=== PATIENT | male | born 2000 | race Caucasian/White ===

== ENCOUNTER 2020-12-17 16:57 | Emergency (ER) | payer MEDICAID ==
[~2020-12-17] VITALS: Ht 175.3 cm; Wt 117.9 kg
[2020-12-17 17:00] VITALS: BP_SYST 134
--- NOTE | 2020-12-17 17:04 | NUR ---
Placed in room 2 . Placed on conveyor monitor, blood pressure machine and pulse oximeter. To gown for exam. Side rails up.
--- NOTE | 2020-12-17 17:05 | NUR ---
Pt bib ambu;ance with complaint of sudden onset of a sharp pain 7/10 while home. Pt reports sitting on couch playing a video game and listening to music when the pain started. Pt felt anxious and called 911. Pt breathing is even and unlabored. Vital signs are stable with slight tachycardia 105 beats per minute. Pt reports pain with deep breath 7/10. Pt AAOX4 speaking full sentences. Pt resting in [facility] no distress noted. Addendum: 12/17/20 at 1712 by RASHEEDEDND Pt bib ambulance with complaint of sudden onset of a sharp pain 7/10 while home. Pt reports sitting on couch playing a video game and listening to music when the pain started. Pt felt anxious and called 911. Pt breathing is even and unlabored. Vital signs are stable with slight tachycardia 105 beats per minute. Pt reports pain with deep breath 7/10. Pt AAOX4 speaking full sentences. Pt resting in [facility] no distress noted. Pt attached to monitor.
--- NOTE | 2020-12-17 17:43 | NUR ---
Pt mother is Rafaela [phone]
--- NOTE | 2020-12-17 19:03 | NUR ---
WILIAN Godoy at bedside examining patient.
--- NOTE | 2020-12-17 19:07 | NUR ---
Care endorsed to Leonel CORDOVA.
--- NOTE | 2020-12-17 19:52 | NUR ---
12 Lead EKG has been done, Dr. Godoy aware
[2020-12-17] MEDS ORDERED: IBUPROFEN 600 MG TABLET PO ONE (20:00)
--- NOTE | 2020-12-17 20:06 | NUR ---
Dr. Godoy bedside for pt update
--- NOTE | 2020-12-17 20:26 | NUR ---
Patient given written and verbal discharge instructions and verbalizes understanding. ER MD discussed with patient the results and treatment provided. Patient in stable condition. ID arm band removed. Patient educated on pain management and to follow up with PMD. Pain Scale 0/10 Opportunity for questions provided and answered.
[2020-12-17 20:27] VITALS: BP_SYST 136
== END 2020-12-17 20:26 | disposition home or self-care (01) ==
LOC: SED 16:57
DX: M94.0 Chondrocostal junction syndrome [Tietze] (principal); F41.9 Anxiety disorder, unspecified
CPT/HCPCS: 71045; 99283

== ENCOUNTER 2021-01-10 05:09 | Emergency (ER) | payer MEDICAID ==
[~2021-01-10] VITALS: Ht 175.3 cm; Wt 117.9 kg
[2021-01-10 05:10] VITALS: BP_SYST 142
--- NOTE | 2021-01-10 05:13 | NUR ---
Patient to ER bed 06 to gown for evaluation. Side rails up.
--- NOTE | 2021-01-10 05:14 | NUR ---
ER Dr. Khalil at bedside examining patient.
--- NOTE | 2021-01-10 05:25 | NUR ---
portable xray at bedside.
--- NOTE | 2021-01-10 05:35 | NUR ---
PATIENT AAOX4 BIB BLS FROM HOME C/O MILD SUBSTERNAL NON-RADIATING CHEST PAIN. CURRENTLY STATING 4/10 ON THE PAIN SCALE. PER PATIENT HAS HSITORY OF ANXIETY AND SLEEP APENA. VSS. DENIES ANY SOB, N/D.
[2021-01-10] MEDS ORDERED: FAMO20TA8 PO (05:37)
[2021-01-10 06:16] VITALS: BP_SYST 142
--- NOTE | 2021-01-10 06:17 | NUR ---
Patient given written and verbal discharge instructions and verbalizes understanding. ER MD discussed with patient the results and treatment provided. Patient in stable condition. ID arm band removed. Rx of pepcid given. Patient educated on pain management and to follow up with PMD. Pain Scale 0/10. Opportunity for questions provided and answered. Medication side effect fact sheet provided.
== END 2021-01-10 06:16 | disposition home or self-care (01) ==
LOC: SED 05:09
DX: R07.89 Other chest pain (principal)
CPT/HCPCS: 71045; 93005; 99283

== ENCOUNTER 2021-01-20 05:05 | Emergency (ER) | payer MEDICAID ==
[~2021-01-20] VITALS: Ht 175.3 cm; Wt 117.9 kg
[~2021-01-20 05:05] MED LIST: FAMO20TA8 PO
[2021-01-20 05:10] VITALS: BP_SYST 140
--- NOTE | 2021-01-20 05:21 | NUR ---
Patient to ER bed 1 to gown for evaluation. Side rails up. Report given to self.
--- NOTE | 2021-01-20 05:26 | NUR ---
ER Dr. Sullivan at bedside examining patient.
--- NOTE | 2021-01-20 06:07 | NUR ---
CXR at bedside.
[2021-01-20] MEDS ORDERED: CITA40TA22 PO (06:28)
[2021-01-20] MEDS ORDERED: VIS25 PO (06:28)
[2021-01-20] MEDS ORDERED: ARIP20TA4 PO (06:28)
[2021-01-20 06:49] VITALS: BP_SYST 135
--- NOTE | 2021-01-20 06:49 | NUR ---
Patient given written and verbal discharge instructions and verbalizes understanding. ER MD discussed with patient the results and treatment provided. Patient in stable condition. ID arm band removed. Rx of psych meds given. Patient educated on pain management and to follow up with PMD. Pain Scale 0. Opportunity for questions provided and answered. Medication side effect fact sheet provided.
== END 2021-01-20 06:49 | disposition home or self-care (01) ==
LOC: SED 05:05
DX: R07.89 Other chest pain (principal); F41.9 Anxiety disorder, unspecified; F32.9 Major depressive disorder, single episode, unspecified; Z79.899 Other long term (current) drug therapy
CPT/HCPCS: 71045; 93005; 99283

== ENCOUNTER 2021-02-18 07:12 | Emergency (ER) | payer MEDICAID ==
[~2021-02-18] VITALS: Ht 175.3 cm; Wt 113.4 kg
[~2021-02-18 07:12] MED LIST changes: +ARIP20TA4 PO; +CITA40TA22 PO; +VIS25 PO
--- NOTE | 2021-02-18 07:15 | NUR ---
Patient to ER bed 4 to gown for evaluation. Side rails up. Report given to TASHA Myrick.
--- NOTE | 2021-02-18 07:22 | NUR ---
Report received from Jamee CORDOVA. Dr Breaux at bedside to evaluate patient; rectal exam performed. Per report received, chief complaint left flank pain, no urinary sx, constipation and intermittent stools with blood when does go. Urine cup provided to patient for sample. Will continue to monitor.
[2021-02-18 07:23] VITALS: BP_SYST 150
--- NOTE | 2021-02-18 07:33 | NUR ---
Patient transported to CT scan via wheelchair
--- NOTE | 2021-02-18 07:39 | NUR ---
Returned from CT scan to bedside
[2021-02-18 08:08] LABS: BASOPHILS % (AUTO) 0.6 % (0.0-2.0); EOSINOPHILS # (AUTO) 0.1 K/uL (0.0-0.4); EOSINOPHILS % (AUTO) 2.3 % (0.0-4.0); HEMATOCRIT 45.5 % (36-54); LYMPHOCYTES # (AUTO) 1.9 K/uL (1.0-5.5); MEAN CORPUSCULAR HEMOGLOBIN 26 pg (27-31); MEAN CORPUSCULAR HGB CONC 33 % (32-36); MEAN CORPUSCULAR VOLUME 80 fL (79.0-98.0); MONOCYTES # (AUTO) 0.5 K/uL (0.0-1.0); MONOCYTES % (AUTO) 9.1 % (1.7-9.3); NEUTROPHILS # (AUTO) 3.4 K/uL (1.8-7.7); PLATELET COUNT (AUTO) 229 K/uL (130-430); RED CELL DISTRIBUTION WIDTH 13.5 % (9.0-15.0)
[2021-02-18 08:28] LABS: CREATININE 0.89 mg/dL (0.55-1.30); POTASSIUM 4.1 mmol/L (3.5-5.1)
[2021-02-18 08:32] LABS: ALBUMIN 3.8 g/dL (3.4-4.8); TOTAL BILIRUBIN 0.6 mg/dL (0.0-1.0)
[2021-02-18] MEDS ORDERED: OMEP20CA15 PO (08:48)
[2021-02-18] MEDS ORDERED: DOCU-144 PO (08:50)
[2021-02-18 08:51] LABS: INR 0.9 (0.80-1.20); PROTHROMBIN TIME 10.1 SECS (9.5-12.5)
[2021-02-18 08:58] VITALS: BP_SYST 150
--- NOTE | 2021-02-18 09:00 | NUR ---
Patient given written and verbal discharge instructions and verbalizes understanding. ER MD discussed with patient the results and treatment provided. Patient in stable condition. ID arm band removed. Rx of Omeprazole and Colace given. Patient educated on pain management and to follow up with PMD. Pain Scale 8/10. Opportunity for questions provided and answered. Medication side effect fact sheet provided.
[2021-02-18 09:13] LABS: BILIRUBIN,URINE NEGATIVE (NEGATIVE); BLOOD, URINE NEGATIVE (NEGATIVE); CLARITY/URINE CLEAR (CLEAR); COLOR,URINE YELLOW (YELLOW); GLUCOSE,URINE NEGATIVE (NEGATIVE); KETONES,URINE NEGATIVE (NEGATIVE); LEUKOCYTE ESTERASE ,URINE NEGATIVE (NEGATIVE); NITRITE, URINE NEGATIVE (NEGATIVE); PROTEIN URINE NEGATIVE (NEGATIVE); UROBILINOGEN,URINE 0.2 (0.2-1.0)
== END 2021-02-18 09:00 | disposition home or self-care (01) ==
LOC: SED 07:12
DX: K29.70 Gastritis, unspecified, without bleeding (principal); Z79.899 Other long term (current) drug therapy
CPT/HCPCS: 36415; 76376; 80053; 81003; 82150; 83605; 83690; 85025; 85610-TC; 85730-TC; 86886; 86900; 86901; 99284

== ENCOUNTER 2021-09-10 05:08 | Emergency (ER) | payer MEDICAID ==
[~2021-09-10] VITALS: Ht 170.2 cm; Wt 115.7 kg
[~2021-09-10 05:08] MED LIST changes: +DOCU-144 PO; +OMEP20CA15 PO
[2021-09-10 05:18] VITALS: BP_SYST 117
--- NOTE | 2021-09-10 05:24 | NUR ---
MD to bed 2 via EMS w/ c/o tingling to hands, feet, face, lips. Pt states history of anxiety. Respirations 22 mildly tachypneic. Normal skin color for ethnicity. Face symmetrical. Instrumentation Supervisor strength equal bilaterally. Ambulates with strong steady gait.
[2021-09-10 06:20] LABS: MEAN CORPUSCULAR VOLUME 79 fL (79.0-98.0)
[2021-09-10 06:24] LABS: BASOPHILS # (AUTO) 0.1 K/uL (0.0-0.2); BASOPHILS % (AUTO) 0.7 % (0.0-2.0); EOSINOPHILS # (AUTO) 0.1 K/uL (0.0-0.4); EOSINOPHILS % (AUTO) 1.7 % (0.0-4.0); HEMATOCRIT 44.1 % (36-54); HEMOGLOBIN 14.6 g/dL (14.0-18.0); LYMPHOCYTES # (AUTO) 2.9 K/uL (1.0-5.5); LYMPHOCYTES % (AUTO) 38.2 % (20.5-51.5); MEAN CORPUSCULAR HEMOGLOBIN 26 pg (27-31); MEAN CORPUSCULAR HGB CONC 33 % (32-36); MONOCYTES # (AUTO) 0.7 K/uL (0.0-1.0); MONOCYTES % (AUTO) 9.2 % (1.7-9.3); NEUTROPHILS # (AUTO) 3.7 K/uL (1.8-7.7); NEUTROPHILS % (AUTO) 50.2 % (40.0-70.0); PLATELET COUNT (AUTO) 209 K/uL (130-430); RED BLOOD CELL COUNT(AUTO) 5.55 MIL/uL (4.2-6.2); RED CELL DISTRIBUTION WIDTH 13.1 % (9.0-15.0); WHITE BLOOD COUNT (AUTO) 7.5 K/uL (4.8-10.8)
[2021-09-10 06:25] LABS: ANION GAP 8 (5-15); CALCIUM 8.1 mg/dL (8.4-11.0); CHLORIDE 105 mmol/L (98-107); CREATININE 1.01 mg/dL (0.55-1.30); GLUCOSE 101 mg/dL (70-99); POTASSIUM 3.7 mmol/L (3.5-5.1); SODIUM SERUM 140 mmol/L (136-145); UREA NITROGEN, BLOOD 11 mg/dL (8-21)
[2021-09-10 06:33] LABS: GFR AFRICAN AMERICAN 118 mL/min (>90)
[2021-09-10 06:34] LABS: ALANINE AMINOTRANSFERASE 41 U/L (12-78); ALBUMIN 3.4 g/dL (3.4-4.8); ASPARTATE AMINOTRANSFERASE 23 U/L (10-37); TOTAL BILIRUBIN 0.5 mg/dL (0.0-1.0)
[2021-09-10 06:36] LABS: ALCOHOL, BLOOD < 3 mg/dL (<10)
--- NOTE | 2021-09-10 07:10 | NUR ---
Report received at this time to [facility] care of patient.
--- NOTE | 2021-09-10 07:46 | NUR ---
Pt resting in bed; easily arousable to voice. Pt states he is feeling much better than when he first arrived. NAD noted. 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 Pending MD dispo.
[2021-09-10] MEDS ORDERED: ALPR0.5T PO (08:24)
--- NOTE | 2021-09-10 09:28 | NUR ---
Patient A/Ox3, VSS. Patient given written and verbal discharge instructions and verbalizes understanding. ER MD discussed with patient the results and treatment provided. Patient in stable condition. ID arm band removed. Rx of Alprazoam given. Patient educated on medication management and to follow up with PMD. Pain Scale 0/10. Opportunity for questions provided and answered. NAD noted at this time.
[2021-09-10 09:59] VITALS: BP_SYST 122
== END 2021-09-10 09:25 | disposition home or self-care (01) ==
LOC: SED 05:08
DX: R20.2 Paresthesia of skin (principal); F41.9 Anxiety disorder, unspecified; F32.A Depression, unspecified; Z79.899 Other long term (current) drug therapy
CPT/HCPCS: 36415; 70450; 76376; 80053; 84484; 85025; 93005; 99285; G0482

== ENCOUNTER 2021-12-20 17:58 | Emergency (ER) | payer MEDICAID ==
[~2021-12-20] VITALS: Ht 172.7 cm; Wt 108.9 kg
[~2021-12-20 17:58] MED LIST changes: +ALPR0.5T PO
--- NOTE | 2021-12-20 18:15 | NUR ---
Pt brought by Roxy HARRIS&Ox4, pt presents to ER with chest pain/ anxiety starting few hours ago, skin pink and warm, respirations even and unlabored,cap refill <3.
--- NOTE | 2021-12-20 18:32 | NUR ---
Dr Rocha evaluating patient in the [facility]
[2021-12-20 18:37] VITALS: BP_SYST 123
[2021-12-20 18:56] VITALS: BP_SYST 123
--- NOTE | 2021-12-20 19:11 | NUR ---
Patient given written and verbal discharge instructions and verbalizes understanding. ER MD discussed with patient the results and treatment provided. Patient in stable condition. ID arm band removed. No Rx given. Patient educated on pain management and to follow up with PMD. Pain Scale 2/10. Opportunity for questions provided and answered. Medication side effect fact sheet provided.
== END 2021-12-20 18:56 | disposition home or self-care (01) ==
LOC: SED 17:58
DX: R00.2 Palpitations (principal); R07.89 Other chest pain; F41.9 Anxiety disorder, unspecified; Z79.899 Other long term (current) drug therapy
CPT/HCPCS: 93005; 99283